=== PATIENT | female | born 1970 | race Caucasian/White ===

== ENCOUNTER → 2017-04-13 | Outpatient (CLI) | payer BC ==
--- NOTE | 2017-04-13 15:44 | RADIOLOGY REPORT (SQ) ---
EXAM DESCRIPTION: MRI LUMBAR SPINE WITHOUT COMPLETED DATE/TIME: 04/13/2017 12:32 pm REASON FOR STUDY: LUMBAR RADICULOPATHY (M54.17) M54.17 RADICULOPATHY, LUMBOSACRAL REGION COMPARISON: None. TECHNIQUE: Sagittal and Axial imaging includes T1, T2, STIR and gradient echo sequences. Coronal T2/ HASTE imaging. LIMITATIONS: None. FINDINGS: VISUALIZED UPPER ABDOMEN: Limited evaluation. No acute or suspicious findings suggested. SEGMENTATION: No transitional anatomy. The lowest well-developed disc space is labeled L5-S1. ALIGNMENT: Anatomic. VERTEBRAE: Intact. BONE MARROW: Fatty reactive vertebral body endplate changes at L5-S1 DISC SIGNAL: Decreased T2 weighted intervertebral disc signal at L4-5 and L5-S1 POSTERIOR ELEMENTS: Right micro laminectomy defect at L5 HARDWARE: None in the spine. CORD AND CONUS: Normal in size and signal intensity. Conus at the T12-L1 level. SOFT TISSUES: No aortic aneurysm seen. No bulky retroperitoneal adenopathy or mass. No paraspinal mas s or fluid. T11-12: At the upper edge of the field of view. No central or foraminal stenosis. Very mild bilate ral facet hypertrophy. T12-L1: No central or foraminal stenosis. Very mild facet hypertrophy. L1-L2: No significant spinal stenosis or exit foraminal stenosis. Mild bilateral facet hypertrophy L2-L3: No significant spinal stenosis or exit foraminal stenosis. Minimal posterior disc bulging, mi ld bilateral facet hypertrophy L3-L4: No significant spinal stenosis or exit foraminal stenosis. Mild diffuse posterior disc bulge, moderate bilateral facet hypertrophy. L4-L5: Broad diffuse posterior disc bulging is present with a right paracentral protrusion/ herniatio n. This finding along with moderate bilateral facet and ligament hypertrophy causes moderate central canal stenosis and asymmetric flattening of the thecal sac in the right lateral recess containing th e right L5 proximal nerve root. These changes are best shown on axial T2 series 5, images 24-27. Elsewhere at L4-5, there is mild bilateral inferior foraminal narrowing without exiting L4 nerve root impingement. L5-S1: Old right micro laminectomy defect. No significant scar tissue or mass effect around the righ t L5 exiting nerve root in the neural foramen or proximal right S1 nerve root in the canal. No signi ficant central stenosis. Mild bilateral foraminal narrowing from disc bulge and facet hypertrophy. SACRUM: Visualized upper sacrum intact. OTHER: Findings discussed with Dr. Price IMPRESSION: Right paracentral disc herniation at L4-5, flattening the right proximal L5 nerve root i n the lateral recess, and causing moderate central canal stenosis at L4-5. TECHNICAL DOCUMENTATION: JOB ID: [id number] [employer]- All Rights Reserved
== END ==
LOC: RAD 11:11
PROVIDERS: ATTEND Pain Medicine Interventional Pain Medicine
DX: M54.17 Radiculopathy, lumbosacral region (principal)
CPT/HCPCS: 72148